=== PATIENT | female | born 2005 ===

== ENCOUNTER 2025-03-12 19:00 | Emergency (ER) | payer SELFPAY ==
[2025-03-12 19:01] VITALS: BMI 22.0
--- NOTE | 2025-03-12 19:31 | PC.NURSE ---
INFORMED SECURITY THAT THEY ARE GOING .
== END 2025-03-12 19:32 | disposition left against medical advice (07) ==
LOC: SERX 19:20
PROVIDERS: Emergency Provider Emergency Medicine
DX: Z53.21 Procedure and treatment not carried out due to patient leaving prior to being seen by health care provider (principal)
CPT/HCPCS: 99281